=== PATIENT | male | born 1945 | race African-American/Black ===

== ENCOUNTER 2022-01-25 23:20 | Inpatient (IN) | payer OTHER ==
[~2022-01-25] VITALS: Ht 172.7 cm; Wt 93.4 kg
[2022-01-26] VITALS (11 sets, daily range): BP systolic 106–189; BP diastolic 63–92
[2022-01-26 00:13] LABS: Basophils # (auto) 0.1 10 ^3/uL (0-0.2); Basophils % (auto) 0.7 % (0.0-2.0); Eosinophils # (auto) 0 10 ^3/uL (0-0.8); Eosinophils % (auto) 0.1 % (0.0-7.0); Hematocrit 42.2 % (41.0-53.0); Lymphocytes # (auto) 1.9 10 ^3/uL (0.4-5.4); Lymphocytes % (auto) 25.9 % (10.0-50.0); Mean Corpuscular Hemoglobin 29.6 pg (28.0-32.0); Mean Corpuscular Hgb Conc. 33.3 g/dL (32.0-36.0); Mean Corpuscular Volume 88.9 fL (80.0-100.0); Monocytes # (auto) 0.8 10 ^3/uL (0-1.3); Monocytes % (auto) 11.3 % (0.0-12.0); Neutrophils # (auto) 4.6 10 ^3/uL (1.6-8.6); Nucleated Red Blood Cells % 0.1 %; Red Blood Cells 4.75 10^6/uL (4.5-5.90); Red Cell Distribution Width 12.4 % (11.8-14.3); White Blood Cell 7.4 10^3/uL (4.4-10.8)
[2022-01-26 00:30] LABS: BUN/Creatinine Ratio 8.6; Calcium 9.3 mg/dL (8.5-10.1)
[2022-01-26 00:35] LABS: Bilirubin, Total 0.7 mg/dL (0.2-1.0); Total Protein 7.3 g/dL (6.4-8.2)
[2022-01-26] MEDS ORDERED: ASPirin 81 mg TAB PO ONE (01:15)
[2022-01-26] MEDS ORDERED: HEPARIN SODIUM (PORCINE) 5000 UNITS/ML 1ML VIAL IV ONE (01:15)
[2022-01-26] MEDS ORDERED: SODIUM CHLORIDE 0.9% 1,000 ML IV ONE (01:15)
[2022-01-26] MEDS ORDERED: CLOPIDOGREL 300 MG TAB PO ONE (01:15)
[2022-01-26] MEDS ORDERED: HEPARIN DRIP/D5W 100UNITS/ML 250 ML IV SCH ×3 (01:15→08:15)
[2022-01-26] MEDS: NITROGLYCERIN 50MG/250ML 250 ML IV ONE ×2 (01:42→03:56)
[2022-01-26 02:52] LABS: Urine Bacteria NONE SEEN /hpf (None Seen); Urine Blood Negative /uL (Negative); Urine Specific Gravity 1.018 (1.001-1.035); Urine WBC <1 /hpf (0 - 3)
[2022-01-26] MEDS ORDERED: MORPHINE SULFATE INJECTION 2 MG/ML SYRG IV PRN (05:30)
[2022-01-26] MEDS ORDERED: NITROGLYCERIN 0.4 MG SL TAB SL PRN (05:30)
[2022-01-26] MEDS ORDERED: ONDANSETRON HCL 4 MG/2 ML VIAL IV PRN (05:30)
[2022-01-26] MEDS ORDERED: SODIUM CHLOR 0.9% PF (SALINE LOCK) 10ML VIAL/SYR IV SCH (06:00)
[2022-01-26 08:59] LABS: INR 1.2 (0.9-1.15); Partial Thromboplastin Time 27.1 sec (23.6-33.0)
[2022-01-26] MEDS: amLODIPine BESYLATE 5 MG TAB PO SCH (09:42)
[2022-01-26] MEDS: PANTOPRAZOLE 40 MG TAB PO SCH (09:42)
[2022-01-26] MEDS ORDERED: ASPirin 81 mg TAB PO SCH (10:00)
[2022-01-26] MEDS ORDERED: ATENOLOL 25 MG TAB PO SCH (10:00)
[2022-01-26] MEDS ORDERED: LIDOCAINE 2%HCL (LOCAL ANESTH.) INJ 10ml MDV ONE ×2 (11:29→13:18)
[2022-01-26] MEDS ORDERED: IODIXANOL 320MG/ML 100ML BTL IV ONE (11:29)
[2022-01-26] MEDS ORDERED: ANGIOMAX 250 MG VIAL IV ONE (12:08)
[2022-01-26] MEDS ORDERED: VERAPAMIL 2.5MG/ML INJ 2ML VIAL IV ONE (12:09)
[2022-01-26] MEDS ORDERED: SODIUM CHL 0.9% 0 ML ONE (12:09)
[2022-01-26] MEDS ORDERED: fentaNYL CITRATE 100 MCG/2 ML VL ONE (12:09)
[2022-01-26] MEDS ORDERED: MIDAZOLAM HCL 2MG/2ML 2ml VIAL (1mg/ml) ONE (12:09)
[2022-01-26] MEDS ORDERED: HEPARIN SODIUM (PORCINE) 5000 UNITS/ML 1ML VIAL ONE (12:39)
[2022-01-26] MEDS: SODIUM CHLORIDE 0.9% 1,000 ML IV SCH (13:45)
[2022-01-26] MEDS ORDERED: hydrALAZINE HCL 20 MG/ML VL IV PRN (13:45)
[2022-01-26] MEDS: SODIUM CHLOR 0.9% PF (SALINE LOCK) 10ML VIAL/SYR IV SCH ×2 (14:00→22:00)
[2022-01-26 15:56] LABS: INR 1.16 (0.9-1.15); Partial Thromboplastin Time 26.9 sec (23.6-33.0)
[2022-01-26] MEDS ORDERED: ACETAMINOPHEN 325 MG TAB PO PRN (19:15)
[2022-01-26] MEDS ORDERED: ATORVASTATIN 20 MG TAB PO SCH (22:00)
[2022-01-26] MEDS: METOPROLOL TARTRATE 25 MG TAB PO SCH (22:15)
[2022-01-27 05:00] VITALS: BP 156/80
[2022-01-27] MEDS: SODIUM CHLOR 0.9% PF (SALINE LOCK) 10ML VIAL/SYR IV SCH ×2 (05:55→14:00)
[2022-01-27] MEDS: SODIUM CHLORIDE 0.9% 1,000 ML IV SCH (05:56)
[2022-01-27 06:11] LABS: Basophils # (auto) 0 10 ^3/uL (0-0.2); Basophils % (auto) 0.3 % (0.0-2.0); Eosinophils # (auto) 0 10 ^3/uL (0-0.8); Eosinophils % (auto) 0.4 % (0.0-7.0); Hematocrit 39.9 % (41.0-53.0); Hemoglobin 13.6 g/dL (13.5-17.5); Lymphocytes # (auto) 2.1 10 ^3/uL (0.4-5.4); Mean Corpuscular Hemoglobin 29.8 pg (28.0-32.0); Mean Corpuscular Hgb Conc. 34.1 g/dL (32.0-36.0); Mean Corpuscular Volume 87.2 fL (80.0-100.0); Monocytes # (auto) 0.9 10 ^3/uL (0-1.3); Monocytes % (auto) 10.3 % (0.0-12.0); Neutrophils # (auto) 5.3 10 ^3/uL (1.6-8.6); Nucleated Red Blood Cells % 0.2 %; Red Blood Cells 4.58 10^6/uL (4.5-5.90); Red Cell Distribution Width 12.4 % (11.8-14.3); White Blood Cell 8.4 10^3/uL (4.4-10.8)
[2022-01-27 06:34] LABS: Albumin 3.4 g/dL (3.4-5.0); Calcium 9.3 mg/dL (8.5-10.1); Magnesium 2.5 mg/dL (1.6-2.6); Potassium 3.9 mmol/L (3.5-5.1)
[2022-01-27 06:42] LABS: BUN/Creatinine Ratio 9.8; Bilirubin, Total 0.9 mg/dL (0.2-1.0); Total Protein 6.8 g/dL (6.4-8.2)
[2022-01-27] MEDS ORDERED: ENOXAPARIN SOD 80 MG/0.8ML SYRINGE SC SCH (08:00)
[2022-01-27 09:00] VITALS: BP 143/80
[2022-01-27] MEDS: METOPROLOL TARTRATE 25 MG TAB PO SCH (09:27)
[2022-01-27] MEDS: amLODIPine BESYLATE 5 MG TAB PO SCH (09:28)
[2022-01-27] MEDS: PANTOPRAZOLE 40 MG TAB PO SCH (09:28)
[2022-01-27] MEDS ORDERED: ASPirin 81 mg TAB PO SCH (10:00)
[2022-01-27] MEDS ORDERED: ERGOCALCIFEROL 50,000 UNIT(1.25MG) CAP PO SCH (12:15)
[2022-01-27 13:00] VITALS: BP 125/80
[2022-01-27 17:00] VITALS: BP 158/81
[2022-01-27 19:45] VITALS: BP 157/77
== END 2022-01-27 20:31 | disposition short-term general hospital (02) | DRG 280 ==
LOC: EDBD 23:20 → ER 23:20 → TELE 01-26 05:17 → TELE-WESTW 01-26 09:06
PROVIDERS: ADMIT Nurse Practitioner; ATTEND Internal Medicine
PROC: 4A023N7 Measurement of Cardiac Sampling and Pressure, Left Heart, Percutaneous Approach (ICD-10-PCS; principal; 2022-01-26)
PROC: B211YZZ Fluoroscopy of Multiple Coronary Arteries using Other Contrast (ICD-10-PCS; 2022-01-26)
PROC: B215YZZ Fluoroscopy of Left Heart using Other Contrast (ICD-10-PCS; 2022-01-26)
DX: I21.4 Non-ST elevation (NSTEMI) myocardial infarction (principal); N17.0 Acute kidney failure with tubular necrosis; I50.43 Acute on chronic combined systolic (congestive) and diastolic (congestive) heart failure; I13.0 Hypertensive heart and chronic kidney disease with heart failure and stage 1 through stage 4 chronic kidney disease, or unspecified chronic kidney disease; N18.9 Chronic kidney disease, unspecified; E55.9 Vitamin D deficiency, unspecified; E66.9 Obesity, unspecified; E78.5 Hyperlipidemia, unspecified; Z20.822 Contact with and (suspected) exposure to COVID-19; I25.119 Atherosclerotic heart disease of native coronary artery with unspecified angina pectoris; N40.0 Benign prostatic hyperplasia without lower urinary tract symptoms; Z95.5 Presence of coronary angioplasty implant and graft; Z83.3 Family history of diabetes mellitus; Z82.49 Family history of ischemic heart disease and other diseases of the circulatory system; Z68.31 Body mass index [BMI] 31.0-31.9, adult
CPT/HCPCS: 36415; 71045; 80053; 80061; 81001; 82306; 83036; 83735; 83880; 84443; 84484; 85025; 85610; 85730; 93306; 93458; 96361; 96365; 96376; 99152; 99153; G0378; J2001; J2250; Q9967